=== PATIENT | female | born 1980 | race Caucasian/White ===

== ENCOUNTER 2019-11-21 22:59 | Emergency (ER) | payer BC | END 2019-11-21 23:55 | disposition left against medical advice (07) | LOC: JD.ED 22:59 | DX: Z53.21 Procedure and treatment not carried out due to patient leaving prior to being seen by health care provider (principal) | CPT/HCPCS: 99282 ==

== ENCOUNTER 2022-10-11 14:04 | Day surgery (SDC) | payer BC ==
[2022-10-11] MEDS ORDERED: Ondansetron 4 MG/2 ML SDV IVPUSH ONE (15:31)
[2022-10-11] MEDS ORDERED: HYDROmorphone 0.5 MG/0.5 ML Syringe IVPUSH ONE (15:31)
[2022-10-11] MEDS ORDERED: Sodium Chloride 0.9% 1,000 ML IV ONE ×2 (15:31→17:43)
[2022-10-11] MEDS ORDERED: Iopamidol 612 MG/ML 50 ML SDV IVPUSH ONE (15:39)
[2022-10-11] MEDS ORDERED: Iopamidol 612 MG/ML 100 ML Bottle IVPUSH ONE (15:39)
[2022-10-11] MEDS ORDERED: Sodium Chloride 0.9% 10 ML Syringe FLUSH ONE (15:39)
[2022-10-11] MEDS ORDERED: Sodium Chloride 0.9% 100 ML IV SCH (15:45)
[2022-10-11] MEDS: Sodium Chloride 0.9% 10 ML Syringe FLUSH PRN ×2 (17:03→17:33)
[2022-10-11] MEDS ORDERED: Piperacillin/Tazobactam 4.5 GM in Sodium Chloride 0.9% 100 ML IV ONE (18:06)
[2022-10-11] MEDS ORDERED: Propofol 200 MG/20 ML SDV ONE (19:10)
[2022-10-11] MEDS ORDERED: Ondansetron 4 MG/2 ML SDV ONE (19:10)
[2022-10-11] MEDS ORDERED: Rocuronium 50 MG/5 ML Vial ONE (19:10)
[2022-10-11] MEDS ORDERED: Lidocaine 1% 4 ML ONE (19:10)
[2022-10-11] MEDS ORDERED: Midazolam 1 MG/ML 2 ML SDV ONE (19:10)
[2022-10-11] MEDS ORDERED: Succinylcholine 200 MG/10 ML MDV ONE (19:11)
[2022-10-11] MEDS ORDERED: fentaNYL 100 MCG/2 ML SDV ONE (19:13)
[2022-10-11] MEDS ORDERED: Lactated Ringers 1,000 ML ONE ×2 (19:17→20:32)
[2022-10-11] MEDS ORDERED: Lidocaine 1% with EPINEPHrine 1:100,000 10 ML MDV ONE (19:19)
[2022-10-11] MEDS ORDERED: Bupivacaine 0.5%/EPINEPHrine 1:200,000 50 ML MDV ONE (19:19)
[2022-10-11] MEDS ORDERED: Ondansetron 4 MG/2 ML SDV IVPUSH PRN (19:29)
[2022-10-11] MEDS ORDERED: HYDROmorphone 0.5 MG/0.5 ML Syringe IVPUSH PRN (19:29)
[2022-10-11] MEDS ORDERED: fentaNYL 100 MCG/2 ML SDV IVPUSH PRN (19:29)
[2022-10-11] MEDS ORDERED: Ketamine 500 mg/10 ML MDV ONE (19:53)
[2022-10-11] MEDS ORDERED: Dexamethasone 4 MG/ML 5 ML MDV ONE (19:53)
[2022-10-11] MEDS ORDERED: Neostigmine Methylsulfate 10 MG/10 ML MDV ONE (20:15)
[2022-10-11] MEDS ORDERED: Ketorolac 30 MG/ML SDV ONE (20:29)
[2022-10-11] MEDS ORDERED: Haloperidol Lactate 5 MG/ML SDV IVPUSH ONE (22:23)
[2022-10-11] MEDS ORDERED: Acetaminophen/oxyCODONE 325-5 MG Tab PO PRN (22:55)
== END 2022-10-11 22:58 | disposition home or self-care (01) ==
LOC: JD.ED 14:04 → SUPCPDRO 14:04 → JD.SDS 18:46
PROVIDERS: ATTEND Surgery
DX: K35.80 Unspecified acute appendicitis (principal); D25.9 Leiomyoma of uterus, unspecified; K76.0 Fatty (change of) liver, not elsewhere classified; Z91.010 Allergy to peanuts; Z98.890 Other specified postprocedural states
CPT/HCPCS: 36415; 44970; 74177; 80053; 83735; 85025; 86140; J0330; J1100; J1170; J1885; J2250; J2405; J2543; J2704; J2710; J3010; J3490; J7030; J7120; Q9967